=== PATIENT | female | born 1990 | race African-American/Black ===

== ENCOUNTER 2017-06-20 13:56 | Emergency (ER) | payer OTHER ==
[~2017-06-20] VITALS: Ht 170.2 cm; Wt 102.1 kg
[2017-06-20] MEDS ORDERED: PROTONIX40 MG PO (15:29)
== END 2017-06-20 15:39 | disposition home or self-care (01) ==
LOC: ED 13:56
DX: R19.5 Other fecal abnormalities (principal); F17.200 Nicotine dependence, unspecified, uncomplicated
CPT/HCPCS: 80053; 81001; 83690; 84703; 85025; 96374; 99283; J2405

== ENCOUNTER 2020-08-30 12:51 | Emergency (ER) | payer OTHER ==
[~2020-08-30] VITALS: Ht 170.2 cm; Wt 103.0 kg
[~2020-08-30 12:51] MED LIST: PROTONIX40 MG PO
[2020-08-30] MEDS ORDERED: OMEPRAZOLE20 MG PO (13:19)
[2020-08-30] MEDS ORDERED: LISINOPRIL10 MG PO (13:19)
[2020-08-30] MEDS ORDERED: ONDANSETRON ODT8 MG PO (13:33)
--- NOTE | 2020-08-31 03:46 | PATH ---
[facility] [address] [place], [place] [address] Signed ORDERING PHYSICIAN: Kishore Corey MD PATIENT NAME: SVEN SHAHID GENDER: F : 1990 Prior History: No cases found. SPECIMEN(S): MOLECULAR PATHOLOGY RESULTS: SARS-CoV-2 Not Detected ADDITIONAL NOTES.: The [employer] SARS-CoV-2 Assay is a multiplex real-time PCR (RT-PCR) in vitro diagnostic test intended for the qualitative detection of RNA from SARS-CoV-2 from individuals who meet COVID-19 clinical and/or epidemiological criteria. In general, SARS-CoV-2 RNA can be detected during the acute phase of infection. Positive results indicate the presence of SARS-CoV-2 RNA. Clinical correlation with patient history and other diagnostic information is necessary to determine patient infection status. Positive results do not rule out bacterial infection or co-infection with other viruses. Negative results do not preclude SARS-CoV-2 infection and should not be used as the sole basis for patient management decisions. Negative results must be combined with other clinical observations, patient history, and epidemiological information. The [employer] Fusion SARS-CoV-2 Assay is not yet approved or cleared by the [place] FDA. When there are no FDA-approved or cleared tests available, and other criteria are met, FDA can make tests available under an emergency access mechanism called an Emergency Use Authorization (EUA). The EUA for this test is supported by the [employer] of Health and Human Service's (HHS's) declaration that circumstances exist to justify the emergency use of in vitro diagnostics for the detection and/or diagnosis of the virus that causes COVID-19. This EUA will remain in effect for the duration of the COVID-19 declaration justifying emergency of IVDs, unless it is terminated or revoked by FDA, after which the test may no longer be used. The [employer] Fusion SARS-CoV-2 Assay is for use only under EUA PATIENT NAME: SVEN SHAHID PATHOLOGY DATE OF : [birth year] REPORT #: [id number] PHYSICIAN: JEEVAN PATHOLOGY PCP: JOSE ALFONSO MD REPORT IS CONFIDENTIAL AND NOT TO BE RELEASED WITHOUT AUTHORIZATION [facility] [address] [place] [id number] Signed in laboratories certified under the Clinical Laboratory Improvement Amendments of 1988 (CLIA) to perform high complexity tests. [facility] is certified under CLIA to perform high complexity clinical laboratory testing. PERFORMING LABORATORY.: Molecular testing was performed by [facility] [place] [address] (Table Attendant: Daltno Randall D.O.; CLIA#: [id number]) Diagnostician: System Interface Pathologist Electronically Signed 08/31/2020 Copies: ~ PATIENT NAME: SVEN SHAHID PATHOLOGY DATE OF : [birth year] REPORT #: [id number] PHYSICIAN: JEEVAN HERBERT PCP: JOSE ALFONSO MD REPORT IS CONFIDENTIAL AND NOT TO BE RELEASED WITHOUT AUTHORIZATION
== END 2020-08-30 14:50 | disposition home or self-care (01) ==
LOC: ED 12:51
DX: B34.9 Viral infection, unspecified (principal); Z20.828 Contact with and (suspected) exposure to other viral communicable diseases; I10 Essential (primary) hypertension; K21.9 Gastro-esophageal reflux disease without esophagitis; Z79.899 Other long term (current) drug therapy
CPT/HCPCS: 99283; C9803

== ENCOUNTER 2020-11-11 15:49 | Emergency (ER) | payer OTHER ==
[~2020-11-11] VITALS: Ht 170.2 cm; Wt 98.4 kg
[~2020-11-11 15:49] MED LIST changes: +LISINOPRIL10 MG PO; +OMEPRAZOLE20 MG PO; +ONDANSETRON ODT8 MG PO
[2020-11-11] MEDS ORDERED: FAMCICLOVIR500 MG PO (16:52)
== END 2020-11-11 17:00 | disposition home or self-care (01) ==
LOC: ED 15:49
DX: B00.1 Herpesviral vesicular dermatitis (principal); I10 Essential (primary) hypertension; K21.9 Gastro-esophageal reflux disease without esophagitis; Z79.899 Other long term (current) drug therapy
CPT/HCPCS: 86694; 86695; 86696; 99283

== ENCOUNTER 2022-05-22 13:42 | Emergency (ER) | payer OTHER ==
[~2022-05-22] VITALS: Ht 170.2 cm; Wt 98.4 kg
[~2022-05-22 13:42] MED LIST changes: +FAMCICLOVIR500 MG PO
[2022-05-22] MEDS ORDERED: HYDROCODON-ACE1 EA10 PO (19:21)
[2022-05-22] MEDS ORDERED: ONDANSETRON ODT4 MG PO (19:24)
--- NOTE | 2022-05-23 07:03 | EKG ---
[facility] [place] [facility] [address] [facility] [place], [place] [address] Signed Sinus tachycardia Otherwise normal ECG No previous ECGs available Confirmed by NELLA GILES MD ([id number] on 05/23/2022 7:03:10 AM Electronically Signed By: NELLA GILES MD 05/23/22 0703 PATIENT NAME: SVEN SHAHID Electrocardiogram DATE OF : [birth year] PHYSICIAN: NELLA GILES MD REPORT #: [id number] REPORT IS CONFIDENTIAL AND NOT TO BE RELEASED WITHOUT AUTHORIZATION
== END 2022-05-22 20:05 | disposition home or self-care (01) ==
LOC: ED 13:42
DX: R07.89 Other chest pain (principal); R10.13 Epigastric pain; I10 Essential (primary) hypertension; K21.9 Gastro-esophageal reflux disease without esophagitis; Z79.899 Other long term (current) drug therapy
CPT/HCPCS: 36415; 71260; 80053; 83690; 84484; 84703; 85025; 85060; 85379; 93005; 93010; 99285-25; A9270; Q9967

== ENCOUNTER 2024-04-09 11:04 | Emergency (ER) | payer OTHER ==
[~2024-04-09] VITALS: Ht 170.2 cm; Wt 101.1 kg
[~2024-04-09 11:04] MED LIST changes: +HYDROCODON-ACE1 EA10 PO; +ONDANSETRON ODT4 MG PO
[2024-04-09] MEDS ORDERED: LISINOPRIL10 MG PO (11:21)
[2024-04-09 11:39] LABS: HEMATOCRIT 39.4 % (35.0-50.0); HEMOGLOBIN 12.8 g/dL (12.0-18.0); PLATELET COUNT 331 K/uL (140-440); RBC 4.36 M/ul (4.3-5.7)
[2024-04-09 11:41] LABS: BASOPHILS 0.5 % (0-2); LYMPHOCYTES 22.5 % (24-44); MCH 29.3 (27-36); MCHC 32.4 g/dl (30-36); MCV 90.5 fl (81-99); MONOCYTES 9.9 % (0-12); NEUTROPHILS 66.1 % (39-80); RDW 13.5 (10.5-15.0)
[2024-04-09] MEDS ORDERED: SODIUM CHLORIDE 0.9% 1,000 ML IV PRN (11:45)
[2024-04-09 11:54] LABS: ALBUMIN 3.2 g/dL (3.4-5.0); ALBUMIN/GLOBULIN RATIO 0.78 (1.1-2.4); ANION GAP 14.7 (7-21); BILIRUBIN, TOTAL 1.1 ng/dL (0.2-1.0); BUN/CREATININE RATIO 10.2 (6.0-28.6); CALCIUM 8.7 mg/dL (8.5-10.1); CREATININE, SERUM 0.98 mg/dL (0.55-1.02); POTASSIUM 3.7 mmol/L (3.5-5.1); PROTEIN, TOTAL 7.3 g/dL (6.4-8.2)
[2024-04-09 12:52] LABS: BILIRUBIN, URINE NEGATIVE (negative); BLOOD/HGB, URINE NEGATIVE (Negative); KETONE, URINE NEGATIVE (Negative); LEUK ESTERASE, URINE NEGATIVE (negative); NITRITE, URINE NEGATIVE (negative)
[2024-04-09 13:47] VITALS: BP 119/91
--- NOTE | 2024-04-11 07:39 | EKG ---
[facility] [address] [facility] [place] [address] Signed Normal sinus rhythm with sinus arrhythmia Normal ECG When compared with ECG of 22-MAY-2022 13:46, No significant change was found Confirmed by JOSE E SCHMITT MD ([id number]) on 04/11/2024 7:39:18 AM Electronically Signed By: JOSE E SCHMITT 04/11/24 0739 PATIENT NAME: SVEN SHAHID Electrocardiogram DATE OF : [birth year] PHYSICIAN: JOSE E SCHMITT REPORT #: [id number] REPORT IS CONFIDENTIAL AND NOT TO BE RELEASED WITHOUT AUTHORIZATION
== END 2024-04-09 13:34 | disposition home or self-care (01) ==
LOC: ED 11:04
PROVIDERS: Emergency Medicine
DX: R55 Syncope and collapse (principal); I10 Essential (primary) hypertension
CPT/HCPCS: 36415; 80053; 81003; 84484; 84703; 85025; 93005; 93010; 99284-25; J7030